=== PATIENT | male | born 1940 | race Caucasian/White ===

== ENCOUNTER 2018-08-10 09:11 | Emergency (ER) | payer OTHER ==
[2018-08-10 09:23] VITALS: BMI 24.3
--- NOTE | 2018-08-10 10:01 | PDOC ---
History of Present Illness - General Chief Complaint: Pain Stated Complaint: LLQ PAIN Time Seen by Provider: 08/10/18 09:13 History Source: Patient Exam Limitations: No Limitations - History of Present Illness Travel History: No Initial Comments: 08/10/18 09:59 78y F hx of htn, sleep apnea presents presents with pain of lower abdominal pain for the last 3 days, patient states that the pain is sharp and cramping located primarily in the left lower quadrant and is nonradiating. The patient notes that the pain was much worse yesterday and today has alleviated somewhat but it has not gone away so the patient was concerned so presented for evaluation. The patient states notes that he did have an episode of joint aches (elbow/shoulders), and diaphoresis this morning associated with the pain. There was no associated fever, chills, nausea, vomiting, diarrhea, dysuria, melena, chest pain, dyspnea on exertion, numbness/tingling/weakness, worsening symptoms with exertion. Patient did go to urgent care this morning and then was referred to the hospital for further evaluation. Patient denies having any similar episodes of pain in the past denies smoking, drug use, etoh abuse Past History - Past Medical History Allergies/Adverse Reactions: Allergies Allergy/AdvReac Type Severity Reaction Status Date / Time Penicillins Allergy Mild ITCHING,JACQUELYN Verified 08/10/18 09:12 H Home Medications: Ambulatory Orders propRANOLol HCL [Inderal LA -] 80 mg PO HS 11/16/12 Astaxanthin 4 mg PO DAILY 03/15/13 Multivitamin [Multivitamins] 1 each PO TID 04/30/13 Levofloxacin [Levaquin] 750 mg PO DAILY #10 tablet 08/10/18 Suvorexant [Belsomra] 10 mg PO HS 08/10/18 metroNIDAZOLE [Flagyl -] 500 mg PO BID #20 tablet 08/10/18 Anemia: No Asthma: No Cancer: No Cardiac Disorders: No CVA: No COPD: No CHF: No Dementia: Yes (MILD MEMORY LOSS) Diabetes: No GI Disorders: Yes (GERD/ HIATAL HERNIA/ GASTRITS) Disorders: Yes (UTI) HTN: Yes Hypercholesterolemia: No Liver Disease: No Seizures: No Thyroid Disease: No - Surgical History Abdominal Surgery: Yes (RIGHT INGUINAL HERNIA REPAIR-) Appendectomy: No Cardiac Surgery: No Cholecystectomy: No Lung Surgery: No Neurologic Surgery: No Orthopedic Surgery: (LEFT KNEE ARTHROSCOPIC RIGHT KNEE ARTHROSCOPIC ROTATOR CUFF X01 & 02) - Suicide/Smoking/Psychosocial Hx Smoking Status: Yes Smoking History: Never smoked Have you smoked in the past 12 months: No Number of Cigarettes Smoked Daily: 0 If you are a former smoker, when did you quit?: 1970 Hx Alcohol Use: No Drug/Substance Use Hx: No Substance Use Type: Alcohol Hx Substance Use Treatment: No Review of Systems - Review of Systems Able to Perform ROS?: Yes Comments:: 08/10/18 10:06 Constitutional - +diaphoresis no reported Fever, Chills, HEENT: no reported vision changes, sore throat Respiratory: no reported cough, sob, hemoptysis Cardiac: +light headedness, no reported chest pain, palpitations, leg swelling Abd/GI: +abd pain, no reported nausea, vomiting, blood per rectum, melena, diarrhea : no reported dysuria, frequency, discharge Musculskelatal - +joint aches no reported back pain, joint swelling skin - no reported bruising, erythema, rash neurological: no reported headache, numbness, focal weakness, tingling, ataxia, hematologic: no reported easy bruising, easy bleeding *Physical Exam - Vital Signs Last Vital Signs Temp Pulse Resp BP Pulse Ox 98 F 56 L 18 120/74 100 08/10/18 09:12 08/10/18 09:12 08/10/18 09:12 08/10/18 09:12 08/10/18 09:12 - Physical Exam Comments: 08/10/18 10:09 GENERAL: The patient is awake, alert, and fully oriented, Nontoxic - in no acute distress. HEAD: Normocephalic, atraumatic. EYES: extraocular movements intact, sclera anicteric, conjunctiva clear. ENT: Normal voice, Moist mucous membranes. NECK: Normal range of motion, supple LUNGS: Breath sounds equal, clear to auscultation bilaterally. No wheezes, no rhonchi, no rales. HEART: Regular rate and rhythm, normal S1 and S2 without murmur, rub or gallop. ABDOMEN: Soft, mild LLQ ttp. No guarding, no rebound. No CVA tenderness EXTREMITIES: Normal range of motion, no edema. NEUROLOGICAL: No facial assymetry, Normal speech, PSYCH: Normal mood, normal affect. SKIN: Warm, Dry, normal turgor, Heart Score/ECG Review - ECG Impressions Comment:: 08/10/18 10:12 Twelve-lead EKG was performed and reviewed by me. There is normal sinus rhythm with a rate of 54 The axis is normal. The intervals are normal. Incomplete right bundle branch block Impression: Sinus bradycardia ED Treatment Course - LABORATORY CBC & Chemistry Diagram: 08/10/18 09:44 08/10/18 09:44 Medical Decision Making - Medical Decision Making 08/10/18 10:09 Differential for the patient's symptoms includes possible diverticulitis, kidney stones. We'll consider possible ACS for the patient's diaphoreis/lightheadedness - but may be vagal response to the pain pt currently in not significnat pain, and declines pain medication will ck UA to r/o hematuria/uti/kindey stones will ck lab work including trops will reassess will likeyl need advanced imaging to r/o diverticulitis due to focal ttp 08/10/18 12:36 Patient's lab results were reviewed. The patient CT was also reviewed there are signs of acute diverticulitis without complications such as abscess. We'll give the patient Flagyl and Levaquin as the patient is ALLERGIC to penicillins. I believe the patient will be a good outpatient candidate I will have the patient follow up with his doctor in the following week. Return precautions are discussed. I discussed the physical exam findings, ancillary test results and final diagnoses with the patient. I answered all of the patient's questions. The patient was satisfied with the care received and felt comfortable with the discharge plan and treatment plan. The patient will call their primary care physician within 24 hours to arrange follow-up and will return to the Emergency Department with any new, persistent or worsening symptoms. *DC/Admit/Observation/Transfer Diagnosis at time of Disposition: Diverticula of colon - Discharge Dispostion Disposition: HOME Condition at time of disposition: Improved Decision to Admit order: No - Prescriptions Prescriptions: Levofloxacin [Levaquin] 750 mg PO DAILY #10 tablet metroNIDAZOLE [Flagyl -] 500 mg PO BID #20 tablet - Referrals Referrals: Bradly English MD [Non Staff, Medical] - - Patient Instructions Printed Discharge Instructions: DI for Diverticulitis Additional Instructions: Return to the emergency department immediately with ANY new, persistent or worsening symptoms including any worsening abdominal pain, fevers, vomiting or any other concerns. You MUST call and follow up with your doctor tomorrow for further evaluation of your symptoms. Results were discussed with you. Please make sure your doctor reviews the results of your emergency evaluation. If you had any xrays during your visit, it was read preliminarily by myself, a Radiologist will review it and if there are any additional findings we will call you. Print Language: POLISH - Post Discharge Activity
[2018-08-10 10:05] LABS: HEMOGLOBIN 12.2 GM/dl (11.7-16.9); MCH 34.4 pg (25.7-33.7); MCHC 34.9 g/dl (32.0-35.9); MEAN CELL VOLUME 98.7 fl (80-96); MEAN PLT VOLUME 8.5 fl (7.5-11.1); PLATELET COUNT 170 K/MM3 (134-434); RBC 3.54 M/mm3 (4.00-5.60); RDW 11.8 % (11.9-15.9); WHITE BLOOD COUNT 9.8 K/mm3 (4.0-10.8)
[2018-08-10] MEDS ORDERED: SODIUM CHLORIDE 1,000 ML IV ONE (10:28)
[2018-08-10 10:33] LABS: ALBUMIN 3.4 g/dl (3.4-5.0); ALK PHOS 67 U/L (45-117); ANION GAP 13 MMOL/L (8-16); BLOOD UREA NITROGEN 16 mg/dl (7-18); CALCIUM 9.4 mg/dl (8.5-10); CHLORIDE 101 mmol/L (98-107); CO2 26 mmol/L (21-32); CREATININE 1.1 mg/dl (0.55-1.3); GLUCOSE,RANDOM 109 mg/dl (74-106); POTASSIUM 4.4 mmol/L (3.5-5.1); SGOT/AST 15 U/L (15-37); SGPT/ALT 12 U/L (13-61); SODIUM 140 mmol/L (136-145); TOT PROT 6.1 g/dl (6.4-8.2)
[2018-08-10 10:46] LABS: EPITHELIAL CELLS 1+ /hpf; URINE MUCUS 1+
[2018-08-10 10:52] LABS: ANISOCYTOSIS SLIGHT
[2018-08-10 10:53] LABS: PLATELET ESTIMATE ADEQUATE
--- NOTE | 2018-08-10 13:42 | EKG ---
Test Reason : Blood Pressure : / mmHG Vent. Rate : 054 BPM Atrial Rate : 054 BPM P-R Int : 144 ms QRS Dur : 112 ms QT Int : 432 ms P-R-T Axes : 045 015 027 degrees QTc Int : 409 ms SINUS BRADYCARDIA INCOMPLETE RIGHT BUNDLE BRANCH BLOCK BORDERLINE ECG NO PREVIOUS ECGS AVAILABLE Confirmed by SANJAY MONACO, GLENN ([id number]) on 08/10/2018 1:42:33 PM Referred By: CHRIS GUAN Confirmed By:GLENN GRACE MD
[2018-08-10 13:53] VITALS: TEMP 98.3
[2018-08-10 14:54] VITALS: BP 144/89; PULSE 61
== END 2018-08-10 14:59 | disposition home or self-care (01) ==
LOC: FER 09:11
DX: K57.30 Diverticulosis of large intestine without perforation or abscess without bleeding (principal); I10 Essential (primary) hypertension; E78.00 Pure hypercholesterolemia, unspecified; K21.9 Gastro-esophageal reflux disease without esophagitis; F03.90 Unspecified dementia, unspecified severity, without behavioral disturbance, psychotic disturbance, mood disturbance, and anxiety; Z87.891 Personal history of nicotine dependence
CPT/HCPCS: 36415; 74177-TC; 80053; 81003; 81015; 82550; 84484; 85025; 93005; 99283-25; J7030

== ENCOUNTER 2020-03-19 12:34 | Emergency (ER) | payer OTHER, MEDICARE | END 2020-03-19 13:07 | disposition home or self-care (01) | LOC: JVIRT 12:34 | DX: U07.1 COVID-19 (principal) | CPT/HCPCS: C9803; G2012-GT; U0003 ==

== ENCOUNTER 2020-04-08 12:50 | Emergency (ER) | payer OTHER, MEDICARE | END 2020-04-08 13:05 | disposition home or self-care (01) | LOC: JVIRT 12:50 | DX: U07.1 COVID-19 (principal) | CPT/HCPCS: C9803; G2012-GT; Q3014-GT; U0003 ==

== ENCOUNTER 2020-06-18 07:35 | Day surgery (SDC) | payer OTHER, MEDICARE ==
[2020-06-16 11:56] VITALS: BMI 21.8
[2020-06-18] MEDS ORDERED: CYCLOPENTOLATE 2% OPHTH SOLN 2 ML BOTTLE ONE (07:45)
[2020-06-18] MEDS ORDERED: PHENYLEPHRINE 2.5% OPHTH SOLN 15 ML BOTTLE ONE (07:45)
[2020-06-18] MEDS ORDERED: CIPROFLOXACIN 0.3% EYE DROPS 5 ML BOTTLE ONE (07:45)
[2020-06-18] MEDS ORDERED: TROPICAMIDE 1% OPHTH SOLN 15 ML BOTTLE ONE (07:46)
[2020-06-18] MEDS ORDERED: TETRACAINE 0.5% OPHTH SOLN 2 ML BOTTLE ONE (08:46)
[2020-06-18] MEDS ORDERED: LIDOCAINE 1% P/F 10 MG/ML VIAL ONE (08:46)
[2020-06-18] MEDS ORDERED: CARBACHOL 0.01% INTRA-OCULAR 1.5 ML VIAL ONE (08:47)
[2020-06-18] MEDS ORDERED: BSS (NA/CA/MG/K) BALANCED SALT SOLUTION OPHTH SOLN 15 ML BOTTLE ONE (08:47)
[2020-06-18] MEDS ORDERED: NEO/POLYMYX B SULF/DEXAMETH OPHTHALMIC 5ML BOTTLE ONE (08:47)
[2020-06-18] MEDS ORDERED: EPINEPHrine/PF 1 MG/1 ML (1:1,000) AMPULE ONE (08:49)
[2020-06-18] MEDS ORDERED: MIDAZOLAM HCL 2 MG/2 ML SINGLE DOSE VIAL ONE (09:39)
[2020-06-18 10:43] VITALS: TEMP 97.8
[2020-06-18 11:01] VITALS: BP 145/84; PULSE 56
== END 2020-06-18 11:23 | disposition home or self-care (01) ==
LOC: FASU 07:35
PROVIDERS: ATTEND Ophthalmology
PROC: 08RK3JZ Replacement of Left Lens with Synthetic Substitute, Percutaneous Approach (ICD-10-PCS; principal; 2020-06-18 10:05)
DX: H26.8 Other specified cataract (principal)

== ENCOUNTER 2021-02-05 10:40 | Emergency (ER) | payer OTHER, MEDICARE ==
[2021-02-05 11:00] VITALS: BP 193/89; PULSE 63; TEMP 98.2; BMI 19.9
== END 2021-02-05 11:38 | disposition home or self-care (01) ==
LOC: FER 10:40
DX: I10 Essential (primary) hypertension (principal)
CPT/HCPCS: 99281-25

== ENCOUNTER 2021-02-26 02:04 | Observation (INO) | payer OTHER, MEDICARE ==
[2021-02-26] MEDS ORDERED: ACETAMINOPHEN 1000 MG/100 ML VIAL IVPB ONE ×2 (03:07→14:29)
[2021-02-26] MEDS ORDERED: SODIUM CHLORIDE 500 ML IV STA (03:07)
[2021-02-26 03:40] LABS: BASO % 0.6 % (0-2.0); EOS % 1.9 % (0-4.5); HEMATOCRIT 31.3 % (35.4-49); HEMOGLOBIN 10.8 GM/dL (11.7-16.9); LYMPH % 4.4 % (8-40); MCH 33.8 pg (25.7-33.7); MCHC 34.7 g/dl (32.0-35.9); MEAN CELL VOLUME 97.5 fl (80-96); MEAN PLT VOLUME 7.7 fl (7.5-11.1); MONO % 5.1 % (3.8-10.2); PLATELET COUNT 178 10^3/uL (134-434); RBC 3.21 M/mm3 (4.00-5.60); RDW 12.5 % (11.9-15.9); WHITE BLOOD COUNT 9.5 K/mm3 (4.0-10.0)
[2021-02-26 03:48] LABS: URINE APPEARANCE CLEAR; URINE BILIRUBIN NEGATIVE (NEGATIVE); URINE COLOR YELLOW; URINE GLUCOSE (UA) NEGATIVE (NEGATIVE); URINE KETONE NEGATIVE (NEGATIVE); URINE LEUK ESTERASE NEGATIVE (NEGATIVE); URINE NITRITE NEGATIVE (NEGATIVE); URINE PROTEIN NEGATIVE (NEGATIVE); URINE UROBILINOGEN 0.2 mg/dL (0.2-1.0)
[2021-02-26 04:02] LABS: CHLORIDE 104 mmol/L (98-107); SODIUM 138 mmol/L (136-145)
[2021-02-26 04:03] LABS: CALCIUM 8.7 mg/dL (8.5-10.1)
[2021-02-26 04:04] LABS: ALBUMIN 3.3 g/dl (3.4-5.0); ANION GAP 7 MMOL/L (8-16); BLOOD UREA NITROGEN 26.6 mg/dL (7-18); CO2 27 mmol/L (21-32); GLUCOSE,RANDOM 111 mg/dL (74-106)
[2021-02-26 04:07] LABS: CREATININE 1.3 mg/dL (0.55-1.3); SGOT/AST 30 U/L (15-37); SGPT/ALT 21 U/L (13-61)
[2021-02-26 04:09] LABS: BILIRUBIN,TOTAL 0.7 mg/dL (0.2-1); TOT PROT 6.3 g/dl (6.4-8.2)
[2021-02-26 04:10] LABS: ALK PHOS 80 U/L (45-117)
[2021-02-26] MEDS ORDERED: TETRAHYDROZOLINE HCL EYE DROPS OU PRN (09:53)
[2021-02-26 10:43] VITALS: BMI 19.9
[2021-02-26] MEDS ORDERED: SODIUM CHLORIDE 1,000 ML IV SCH (14:45)
[2021-02-26] MEDS: DULoxetine HCL 30 MG CAPSULE.DR PO SCH (14:49)
[2021-02-26] MEDS: ENOXAPARIN NA (PORCINE) 40 MG/0.4 ML DISP.SYRIN SQ SCH (14:54)
[2021-02-26] MEDS ORDERED: ACETAMINOPHEN 1000 MG/100 ML VIAL IVPB PRN (21:00)
[2021-02-26] MEDS ORDERED: MEMANTINE HCL 5 MG TABLET (UD) PO SCH (22:00)
[2021-02-26] MEDS ORDERED: DONEPEZIL HCL 10 MG TABLET (FP) PO SCH (22:00)
[2021-02-26] MEDS ORDERED: MELATONIN 5 MG TABLETS PO SCH (22:00)
[2021-02-27] MEDS: DULoxetine HCL 30 MG CAPSULE.DR PO SCH (09:37)
[2021-02-27] MEDS: ENOXAPARIN NA (PORCINE) 40 MG/0.4 ML DISP.SYRIN SQ SCH (09:37)
[2021-02-27 13:53] VITALS: BP 124/55; PULSE 58; TEMP 98.1
== END 2021-02-27 14:46 | disposition home or self-care (01) ==
LOC: FER 02:04 → FM/S 08:41 → UNDOADMOB 09:09 → FM/S 09:09 → INTOOBSV 09:09 → FM/S 22:35
PROVIDERS: ADMIT Internal Medicine; ATTEND Nurse Practitioner Acute Care
PROC: 3E033NZ Introduction of Analgesics, Hypnotics, Sedatives into Peripheral Vein, Percutaneous Approach (ICD-10-PCS; principal; 2021-02-26)
PROC: 3E023GC Introduction of Other Therapeutic Substance into Muscle, Percutaneous Approach (ICD-10-PCS; 2021-02-26)
PROC: 3E0337Z Introduction of Electrolytic and Water Balance Substance into Peripheral Vein, Percutaneous Approach (ICD-10-PCS; 2021-02-26)
DX: R11.2 Nausea with vomiting, unspecified (principal); R53.1 Weakness; I10 Essential (primary) hypertension; K21.9 Gastro-esophageal reflux disease without esophagitis; E78.5 Hyperlipidemia, unspecified; Z86.16 Personal history of COVID-19; F03.90 Unspecified dementia, unspecified severity, without behavioral disturbance, psychotic disturbance, mood disturbance, and anxiety; Z87.891 Personal history of nicotine dependence; Z88.0 Allergy status to penicillin
CPT/HCPCS: 36415; 71045-TC-FY; 80053; 81003; 82550; 83605; 84484; 85025; 87040; 87086; 93005; 96361; 96372; 96374; 96376; 97116-GP; 97162-GP; 99285-25; C9803; G0378; J0131; U0003; U0005

== ENCOUNTER 2021-11-07 09:40 | Emergency (ER) | payer OTHER, MEDICARE ==
[2021-11-07 09:55] VITALS: RESP 18; BMI 21.1
[2021-11-07 10:36] LABS: HEMATOCRIT 32.5 % (35.4-49); HEMOGLOBIN 11.6 G/dL (11.7-16.9); INR 1.12 (0.83-1.09); MCH 34.7 pg (25.7-33.7); MCHC 35.6 g/dl (32.0-35.9); MEAN CELL VOLUME 97.6 fl (80-96); MEAN PLT VOLUME 8.3 fl (7.5-11.1); PLATELET COUNT 195.6 10^3/uL (134-434); PROTHROMBIN TIME (PATIENT) 12.9 SEC (9.7-13.0); RBC 3.33 10^6/uL (4.00-5.60); WHITE BLOOD COUNT 7.1 10^3/uL (4.0-10.8)
[2021-11-07 10:43] LABS: ALBUMIN 3.3 g/dl (3.4-5.0); BILIRUBIN,TOTAL 0.7 mg/dl (0.2-1); CALCIUM 9.1 mg/dl (8.5-10); CREATININE 1.1 mg/dl (0.55-1.3); TOT PROT 5.7 g/dl (6.4-8.2)
[2021-11-07] MEDS ORDERED: SODIUM CHLORIDE 1,000 ML IV STA (10:53)
[2021-11-07 11:09] LABS: PLATELET ESTIMATE ADEQUATE
[2021-11-07 13:35] VITALS: BP 155/68; PULSE 79; TEMP 98
== END 2021-11-07 13:30 | disposition home or self-care (01) ==
LOC: FER 09:40
PROC: 3E0337Z Introduction of Electrolytic and Water Balance Substance into Peripheral Vein, Percutaneous Approach (ICD-10-PCS; principal; 2021-11-07)
DX: E86.0 Dehydration (principal)
CPT/HCPCS: 0241U-QW; 36415; 71045-TC-FY; 80053; 81003; 81015; 84484; 85027; 85610; 93005; 99285-25

== ENCOUNTER 2021-11-20 09:14 | Emergency (ER) | payer OTHER, MEDICARE ==
[2021-11-20 09:24] VITALS: BP 206/92; PULSE 59; RESP 18; TEMP 98.9; BMI 21.1
[2021-11-20 11:07] LABS: HEMATOCRIT 38.7 % (35.4-49); HEMOGLOBIN 13.3 G/dL (11.7-16.9); MCH 33.5 pg (25.7-33.7); MCHC 34.3 g/dl (32.0-35.9); MEAN CELL VOLUME 97.8 fl (80-96); MEAN PLT VOLUME 8.2 fl (7.5-11.1); PLATELET COUNT 212.8 10^3/uL (134-434); RBC 3.96 10^6/uL (4.00-5.60); RDW 13.5 % (11.9-15.9)
[2021-11-20 11:48] LABS: ALBUMIN 3.4 g/dl (3.4-5.0); BILIRUBIN,TOTAL 0.8 mg/dl (0.2-1); CALCIUM 9.3 mg/dl (8.5-10)
== END 2021-11-20 12:46 | disposition home or self-care (01) ==
LOC: FER 09:14
DX: S00.212A Abrasion of left eyelid and periocular area, initial encounter (principal); S09.90XA Unspecified injury of head, initial encounter; W01.0XXA Fall on same level from slipping, tripping and stumbling without subsequent striking against object, initial encounter
CPT/HCPCS: 36415; 70450-TC; 70486-TC; 71045-TC-FY; 72125-TC; 72170-TC-FY; 80053; 81003; 84484; 85027; 93005; 99285-25

== ENCOUNTER 2021-11-28 09:47 | Inpatient (IN) | payer OTHER, MEDICARE ==
[2021-11-28 11:47] LABS: HEMATOCRIT 35.2 % (35.4-49); HEMOGLOBIN 12.6 G/dL (11.7-16.9); MCH 34.8 pg (25.7-33.7); MCHC 35.9 g/dl (32.0-35.9); MEAN CELL VOLUME 97.1 fl (80-96); MEAN PLT VOLUME 8.5 fl (7.5-11.1); PLATELET COUNT 180.6 10^3/uL (134-434); RBC 3.63 10^6/uL (4.00-5.60); RDW 12.7 % (11.9-15.9)
[2021-11-28 12:23] LABS: AMORP PHOS 2+ /hpf (NONE SEEN)
[2021-11-28 12:25] LABS: PLATELET ESTIMATE ADEQUATE
[2021-11-28 12:28] LABS: ALBUMIN 3.4 g/dl (3.4-5.0); BILIRUBIN,TOTAL 0.8 mg/dl (0.2-1); CALCIUM 9.3 mg/dl (8.5-10); CREATININE 1.2 mg/dl (0.55-1.3)
[2021-11-28] MEDS ORDERED: LOSARTAN POTASSIUM 50 MG TABLET PO ONE (12:38)
[2021-11-28] MEDS ORDERED: DONEPEZIL HCL 10 MG TABLET (FP) PO ONE (12:38)
[2021-11-28] MEDS ORDERED: METOPROLOL TARTRATE 50 MG TABLET (FP) PO ONE (12:38)
[2021-11-28] MEDS ORDERED: amLODIPine BESYLATE 5 MG TABLET (FP) PO ONE (12:40)
[2021-11-28] MEDS ORDERED: amLODIPine BESYLATE 5 MG TABLET (FP) ONE (12:50)
[2021-11-28] MEDS ORDERED: METOPROLOL TARTRATE 50 MG TABLET (FP) ONE (12:50)
[2021-11-28] MEDS ORDERED: LOSARTAN POTASSIUM 50 MG TABLET ONE (12:51)
[2021-11-28] MEDS ORDERED: LIDOCAINE 5% TOPICAL PATCH TP STA (13:42)
[2021-11-28] MEDS ORDERED: SODIUM CHLORIDE 1,000 ML IV SCH (13:45)
[2021-11-28] MEDS ORDERED: TAMSULOSIN HCL 0.4 MG CAP ONE (15:14)
[2021-11-28] MEDS ORDERED: LIDOCAINE 5% TOPICAL PATCH ONE (15:14)
[2021-11-28] MEDS: TAMSULOSIN HCL 0.4 MG CAP PO SCH (15:35)
[2021-11-28 16:21] LABS: HEMATOCRIT 34.2 % (35.4-49); HEMOGLOBIN 12.6 G/dL (11.7-16.9); MCH 35.4 pg (25.7-33.7); MCHC 36.7 g/dl (32.0-35.9); MEAN CELL VOLUME 96.4 fl (80-96); MEAN PLT VOLUME 9.5 fl (7.5-11.1); PLATELET COUNT 281.9 10^3/uL (134-434); RBC 3.55 10^6/uL (4.00-5.60); RDW 13.5 % (11.9-15.9); WHITE BLOOD COUNT 7.7 10^3/uL (4.0-10.8)
[2021-11-28 16:36] VITALS: BMI 20.1
[2021-11-28] MEDS: ENOXAPARIN NA (PORCINE) 30 MG/0.3 ML DISP.SYRIN SQ SCH (18:38)
[2021-11-28] MEDS: MEMANTINE HCL 10 MG TABLET (FP) PO SCH (21:17)
[2021-11-28] MEDS: FAMOTIDINE 20 MG TABLET PO SCH (21:17)
[2021-11-28] MEDS: metoPROLOL SUCCINATE 25 MG TAB.SR.24H (FP) PO SCH (21:17)
[2021-11-28] MEDS: LIDOCAINE PATCH REMOVAL MC SCH (21:17)
[2021-11-28] MEDS ORDERED: DULoxetine HCL 20 MG CAPSULE.DR PO SCH (22:00)
[2021-11-28] MEDS: DULoxetine HCL 30 MG CAPSULE.DR PO SCH (23:05)
[2021-11-29] MEDS: DONEPEZIL HCL 10 MG TABLET (FP) PO SCH (06:55)
[2021-11-29] MEDS ORDERED: PATIENT'S OWN MEDICATION (NON-FORMULARY) (Meloxicam [Meloxicam] 15 MG Tablet) PO SCH (07:00)
[2021-11-29] MEDS ORDERED: PATIENT'S OWN MEDICATION (NON-FORMULARY) (Losartan Potassium [Losartan Potassium] 100 MG T PO SCH (07:00)
[2021-11-29] MEDS ORDERED: amLODIPine BESYLATE 5 MG TABLET (FP) PO SCH (10:00)
[2021-11-29] MEDS: amLODIPine BESYLATE 10 MG TABLET (FP) PO SCH (10:06)
[2021-11-29] MEDS: ENOXAPARIN NA (PORCINE) 30 MG/0.3 ML DISP.SYRIN SQ SCH (10:06)
[2021-11-29] MEDS: LOSARTAN POTASSIUM 50 MG TABLET PO SCH (10:06)
[2021-11-29] MEDS: TAMSULOSIN HCL 0.4 MG CAP PO SCH (10:42)
[2021-11-29] MEDS: metoPROLOL SUCCINATE 25 MG TAB.SR.24H (FP) PO SCH (21:12)
[2021-11-29] MEDS: MEMANTINE HCL 10 MG TABLET (FP) PO SCH (21:12)
[2021-11-29] MEDS: DULoxetine HCL 30 MG CAPSULE.DR PO SCH (21:13)
[2021-11-29] MEDS: FAMOTIDINE 20 MG TABLET PO SCH (21:14)
[2021-11-30] MEDS: DONEPEZIL HCL 10 MG TABLET (FP) PO SCH (06:14)
[2021-11-30] MEDS: LIDOCAINE PATCH REMOVAL MC SCH (06:18)
[2021-11-30 08:32] LABS: ALBUMIN 3.3 g/dl (3.4-5.0); BILIRUBIN,TOTAL 0.7 mg/dl (0.2-1); CALCIUM 9.1 mg/dl (8.5-10); CREATININE 1.1 mg/dl (0.55-1.3); TOT PROT 5.8 g/dl (6.4-8.2)
[2021-11-30] MEDS: LOSARTAN POTASSIUM 50 MG TABLET PO SCH (09:40)
[2021-11-30] MEDS: amLODIPine BESYLATE 10 MG TABLET (FP) PO SCH (09:41)
[2021-11-30] MEDS: ENOXAPARIN NA (PORCINE) 30 MG/0.3 ML DISP.SYRIN SQ SCH (09:41)
[2021-11-30] MEDS: TAMSULOSIN HCL 0.4 MG CAP PO SCH (09:41)
[2021-11-30 10:57] LABS: BASO % 0.5 % (0-2.0); EOS % 4.5 % (0-4.5); HEMATOCRIT 33.5 % (35.4-49); HEMOGLOBIN 11.4 GM/dL (11.7-16.9); MCH 32.9 pg (25.7-33.7); MEAN CELL VOLUME 96.7 fl (80-96); PLATELET COUNT 195 10^3/uL (134-434); RBC 3.46 M/mm3 (4.00-5.60); RDW 12.6 % (11.9-15.9)
[2021-11-30] MEDS ORDERED: SODIUM CHLORIDE 1,000 ML IV SCH (11:45)
[2021-11-30] MEDS: MEMANTINE HCL 10 MG TABLET (FP) PO SCH (21:47)
[2021-11-30] MEDS: FAMOTIDINE 20 MG TABLET PO SCH (21:47)
[2021-11-30] MEDS: DULoxetine HCL 30 MG CAPSULE.DR PO SCH (21:47)
[2021-11-30] MEDS: metoPROLOL SUCCINATE 25 MG TAB.SR.24H (FP) PO SCH (21:47)
[2021-12-01] MEDS: DONEPEZIL HCL 10 MG TABLET (FP) PO SCH (06:31)
[2021-12-01] MEDS: LIDOCAINE PATCH REMOVAL MC SCH ×2 (06:32→22:59)
[2021-12-01 08:16] LABS: ALBUMIN 3.3 g/dl (3.4-5.0); BILIRUBIN,TOTAL 0.7 mg/dl (0.2-1); CALCIUM 9.1 mg/dl (8.5-10); CREATININE 1.2 mg/dl (0.55-1.3)
[2021-12-01] MEDS: TAMSULOSIN HCL 0.4 MG CAP PO SCH (09:28)
[2021-12-01] MEDS: amLODIPine BESYLATE 10 MG TABLET (FP) PO SCH (09:28)
[2021-12-01] MEDS: LOSARTAN POTASSIUM 50 MG TABLET PO SCH (09:28)
[2021-12-01] MEDS: ENOXAPARIN NA (PORCINE) 30 MG/0.3 ML DISP.SYRIN SQ SCH (09:29)
[2021-12-01 11:12] LABS: HEMATOCRIT 34.9 % (35.4-49); HEMOGLOBIN 11.8 GM/dL (11.7-16.9); MCH 32.9 pg (25.7-33.7); MCHC 33.9 g/dl (32.0-35.9); MEAN CELL VOLUME 97.2 fl (80-96); MEAN PLT VOLUME 9.2 fl (7.5-11.1); PLATELET COUNT 195 10^3/uL (134-434); RBC 3.59 M/mm3 (4.00-5.60); RDW 12.6 % (11.9-15.9); WHITE BLOOD COUNT 5.6 K/mm3 (4.0-10.0)
[2021-12-01] MEDS: MEMANTINE HCL 10 MG TABLET (FP) PO SCH (21:49)
[2021-12-01] MEDS: metoPROLOL SUCCINATE 25 MG TAB.SR.24H (FP) PO SCH (21:49)
[2021-12-01] MEDS: FAMOTIDINE 20 MG TABLET PO SCH (21:49)
[2021-12-01] MEDS: DULoxetine HCL 30 MG CAPSULE.DR PO SCH (21:49)
[2021-12-02] MEDS: DONEPEZIL HCL 10 MG TABLET (FP) PO SCH (06:12)
[2021-12-02] MEDS: amLODIPine BESYLATE 10 MG TABLET (FP) PO SCH (09:39)
[2021-12-02] MEDS: ENOXAPARIN NA (PORCINE) 30 MG/0.3 ML DISP.SYRIN SQ SCH (09:39)
[2021-12-02] MEDS: TAMSULOSIN HCL 0.4 MG CAP PO SCH (09:39)
[2021-12-02] MEDS: LOSARTAN POTASSIUM 50 MG TABLET PO SCH (09:39)
[2021-12-02 14:06] VITALS: BP 153/57; PULSE 67; RESP 16; TEMP 98.5
== END 2021-12-02 14:35 | disposition home or self-care (01) | DRG 92 ==
LOC: FER 09:47 → FM/S 12:52 → OBSVTOIN 11-29 17:00
DX: R29.6 Repeated falls (principal); E87.1 Hypo-osmolality and hyponatremia; E78.5 Hyperlipidemia, unspecified; F03.90 Unspecified dementia, unspecified severity, without behavioral disturbance, psychotic disturbance, mood disturbance, and anxiety; N40.0 Benign prostatic hyperplasia without lower urinary tract symptoms; R26.81 Unsteadiness on feet; R07.81 Pleurodynia; E86.0 Dehydration; M25.562 Pain in left knee; M25.561 Pain in right knee; F32.A Depression, unspecified; M17.0 Bilateral primary osteoarthritis of knee; I12.9 Hypertensive chronic kidney disease with stage 1 through stage 4 chronic kidney disease, or unspecified chronic kidney disease; N18.9 Chronic kidney disease, unspecified; I08.1 Rheumatic disorders of both mitral and tricuspid valves; S20.312A Abrasion of left front wall of thorax, initial encounter; W01.0XXA Fall on same level from slipping, tripping and stumbling without subsequent striking against object, initial encounter; Y92.098 Other place in other non-institutional residence as the place of occurrence of the external cause
CPT/HCPCS: 0241U-QW; 36415; 71101-TC-LT-FY; 73560-TC-LT-FY; 73560-TC-RT-FY; 80053; 81003; 81015; 82306; 82607; 85025; 85027; 93005; 93306-TC; 93880-TC; 97116-GP; 97162-GP; 99285-25; G0378

== ENCOUNTER 2021-12-22 10:35 | Day surgery (SDC) | payer OTHER, MEDICARE ==
[2021-12-18 12:06] VITALS: BMI 20.7
[2021-12-22 11:33] VITALS: BP 165/90; PULSE 54; RESP 18; TEMP 97.4
[2021-12-22] MEDS ORDERED: CEFAZOLIN 2 GM in DEXTROSE 5%-WATER - 50 ML IVPB ONE (13:00)
[2021-12-22] MEDS ORDERED: TRANEXAMIC ACID 1000 MG/10 ML VIAL IVPUSH ONE (13:00)
[2021-12-22] MEDS ORDERED: CELECOXIB 200 MG CAPSULE PO ONE (13:00)
== END 2021-12-22 12:00 | disposition short-term general hospital (02) ==
LOC: FASUSAT 10:35
PROVIDERS: ATTEND Orthopaedic Surgery
PROC: 0SRC0J9 Replacement of Right Knee Joint with Synthetic Substitute, Cemented, Open Approach (ICD-10-PCS; principal; 2021-12-22)
DX: Z53.09 Procedure and treatment not carried out because of other contraindication (principal); M17.11 Unilateral primary osteoarthritis, right knee
CPT/HCPCS: 82962

== ENCOUNTER 2021-12-22 11:28 | Emergency (ER) | payer OTHER, MEDICARE ==
[2021-12-22] MEDS ORDERED: ONDANSETRON 4 MG/2 ML VIAL IVPUSH ONE (12:14)
[2021-12-22] MEDS ORDERED: LACTATED RINGERS SOLUTION 1,000 ML/1,000 ML INFUS.BAG IV STA (12:14)
[2021-12-22 12:18] VITALS: BP 116/75; PULSE 53; RESP 18; TEMP 98.1; BMI 20.7
[2021-12-22] MEDS ORDERED: ONDANSETRON 4 MG/2 ML VIAL ONE (12:52)
[2021-12-22 13:12] LABS: HEMATOCRIT 34.6 % (35.4-49); HEMOGLOBIN 12.4 G/dL (11.7-16.9); MCH 35.2 pg (25.7-33.7); MCHC 35.7 g/dl (32.0-35.9); MEAN CELL VOLUME 98.6 fl (80-96); PLATELET COUNT 214.2 10^3/uL (134-434); RBC 3.51 10^6/uL (4.00-5.60); RDW 13.4 % (11.9-15.9)
[2021-12-22 13:18] LABS: ALBUMIN 3.7 g/dl (3.4-5.0); BILIRUBIN,TOTAL 0.6 mg/dl (0.2-1); CALCIUM 9.5 mg/dl (8.5-10); CREATININE 1.1 mg/dl (0.55-1.3); TOT PROT 6.5 g/dl (6.4-8.2)
[2021-12-22 14:15] LABS: PLATELET ESTIMATE ADEQUATE
== END 2021-12-22 18:19 | disposition home or self-care (01) ==
LOC: FER 11:28
PROC: 3E033GC Introduction of Other Therapeutic Substance into Peripheral Vein, Percutaneous Approach (ICD-10-PCS; principal; 2021-12-22)
PROC: 3E0337Z Introduction of Electrolytic and Water Balance Substance into Peripheral Vein, Percutaneous Approach (ICD-10-PCS; 2021-12-22)
DX: R11.0 Nausea (principal)
CPT/HCPCS: 0241U-QW; 36415; 71045-TC-FY; 80053; 81003; 82962; 83690; 84484; 85025; 87086; 93005; 99285-25

== ENCOUNTER 2021-12-29 05:53 | Day surgery (SDC) | payer OTHER, MEDICARE ==
[2021-12-24 17:02] VITALS: BMI 20.7
[2021-12-29] MEDS ORDERED: CELECOXIB 200 MG CAPSULE PO ONE ×2 (06:50→09:00)
[2021-12-29] MEDS ORDERED: ceFAZolin SODIUM 1 GM VIAL ONE ×2 (07:14→08:24)
[2021-12-29] MEDS ORDERED: VANCOMYCIN 1,000 MG VIAL (RESTRICTED TO ID ONLY) ONE (07:14)
[2021-12-29] MEDS ORDERED: PROPOFOL 100 ML ONE (07:22)
[2021-12-29] MEDS ORDERED: MIDAZOLAM HCL 2 MG/2 ML SINGLE DOSE VIAL ONE (07:22)
[2021-12-29] MEDS ORDERED: BUPIVACAINE HCL/PF 0.5% (5MG/ML) 10 ML VIAL ONE (07:31)
[2021-12-29] MEDS ORDERED: BUPIVACAINE LIPOSOME/PF (EXPAREL) 266 MG/20 ML VIAL ONE (07:31)
[2021-12-29] MEDS ORDERED: CEFAZOLIN 2 GM in DEXTROSE 5%-WATER - 50 ML IVPB ONE (08:00)
[2021-12-29] MEDS ORDERED: MAG HYDROX/AL HYDROX/SIMETH 30 ML UNIT-DOSE CUP PO PRN (08:08)
[2021-12-29] MEDS ORDERED: ONDANSETRON 4 MG/2 ML VIAL IVPUSH PRN ×2 (08:08→10:17)
[2021-12-29] MEDS ORDERED: LACTATED RINGERS SOLUTION 1,000 ML IV SCH ×2 (08:15→10:30)
[2021-12-29] MEDS ORDERED: TRANEXAMIC ACID 1000 MG/10 ML VIAL ONE (08:24)
[2021-12-29] MEDS ORDERED: TRANEXAMIC ACID 1000 MG/10 ML VIAL IVPUSH ONE (09:00)
[2021-12-29] MEDS ORDERED: oxyCODONE HCL 5 MG TABLET PO PRN ×2 (10:17)
[2021-12-29] MEDS ORDERED: PROMETHAZINE HCL 25 MG/1 ML VIAL IVPUSH PRN (10:17)
[2021-12-29] MEDS ORDERED: KETOROLAC TROMETHAMINE 30 MG/1 ML VIAL ONE (10:48)
[2021-12-29] MEDS: ACETAMINOPHEN 1000 MG/100 ML BAG IVPB ONE ×2 (10:52→13:11)
[2021-12-29] MEDS: KETOROLAC TROMETHAMINE 30 MG/1 ML VIAL IVPUSH SCH ×3 (10:52→16:46)
[2021-12-29] MEDS: MEMANTINE HCL 10 MG TABLET (FP) PO SCH ×2 (13:10→21:14)
[2021-12-29] MEDS: LOSARTAN POTASSIUM 50 MG TABLET PO SCH (13:10)
[2021-12-29] MEDS: amLODIPine BESYLATE 5 MG TABLET (FP) PO SCH (13:10)
[2021-12-29] MEDS: SENNOSIDES/DOCUSATE COMBO (SENNA PLUS) TABLET (UD) PO SCH ×2 (13:10→21:14)
[2021-12-29] MEDS: MULTIVITAMINS (DAILY MVI) TABLET (FP) PO SCH (13:11)
[2021-12-29] MEDS: CEFAZOLIN SODIUM 2 GM in DEXTROSE 5%-WATER 100 ML IVPB SCH ×2 (16:46→23:57)
[2021-12-29] MEDS: DONEPEZIL HCL 10 MG TABLET (FP) PO SCH (21:14)
[2021-12-29] MEDS: DULoxetine HCL 30 MG CAPSULE.DR PO SCH (21:14)
[2021-12-29] MEDS: FAMOTIDINE 20 MG TABLET PO SCH (21:14)
[2021-12-29] MEDS: metoPROLOL SUCCINATE 25 MG TAB.SR.24H (FP) PO SCH (21:14)
[2021-12-30] MEDS: ACETAMINOPHEN 1000 MG/100 ML BAG IVPB PRN ×2 (06:57→12:52)
[2021-12-30] MEDS: TAMSULOSIN HCL 0.4 MG CAP PO SCH (08:24)
[2021-12-30] MEDS: ASPIRIN 325 MG TABLET PO SCH (08:24)
[2021-12-30 08:31] LABS: HEMATOCRIT 30.9 % (35.4-49); HEMOGLOBIN 10.6 G/dL (11.7-16.9); MCH 33.5 pg (25.7-33.7); MCHC 34.4 g/dl (32.0-35.9); MEAN CELL VOLUME 97.6 fl (80-96); MEAN PLT VOLUME 8.2 fl (7.5-11.1); PLATELET COUNT 174.2 10^3/uL (134-434); RBC 3.17 10^6/uL (4.00-5.60); RDW 13.1 % (11.9-15.9)
[2021-12-30] MEDS: amLODIPine BESYLATE 5 MG TABLET (FP) PO SCH (09:22)
[2021-12-30] MEDS: MULTIVITAMINS (DAILY MVI) TABLET (FP) PO SCH (09:22)
[2021-12-30] MEDS: SENNOSIDES/DOCUSATE COMBO (SENNA PLUS) TABLET (UD) PO SCH ×2 (09:22→21:25)
[2021-12-30] MEDS: MEMANTINE HCL 10 MG TABLET (FP) PO SCH ×2 (09:22→21:26)
[2021-12-30] MEDS: LOSARTAN POTASSIUM 50 MG TABLET PO SCH (09:22)
[2021-12-30] MEDS: DONEPEZIL HCL 10 MG TABLET (FP) PO SCH (21:25)
[2021-12-30] MEDS: DULoxetine HCL 30 MG CAPSULE.DR PO SCH (21:26)
[2021-12-30] MEDS: metoPROLOL SUCCINATE 25 MG TAB.SR.24H (FP) PO SCH (21:26)
[2021-12-30] MEDS: FAMOTIDINE 20 MG TABLET PO SCH (21:26)
[2021-12-31 06:36] VITALS: PULSE 70
[2021-12-31 08:23] LABS: HEMATOCRIT 28.6 % (35.4-49); MCH 34.6 pg (25.7-33.7); MEAN CELL VOLUME 98.7 fl (80-96); MEAN PLT VOLUME 8.3 fl (7.5-11.1); PLATELET COUNT 159.2 10^3/uL (134-434); RDW 12.9 % (11.9-15.9); WHITE BLOOD COUNT 10.7 10^3/uL (4.0-10.8)
[2021-12-31 09:35] VITALS: BP 132/51; RESP 18; TEMP 98.6
[2021-12-31] MEDS: SENNOSIDES/DOCUSATE COMBO (SENNA PLUS) TABLET (UD) PO SCH (09:44)
[2021-12-31] MEDS: ASPIRIN 325 MG TABLET PO SCH (09:45)
[2021-12-31] MEDS: TAMSULOSIN HCL 0.4 MG CAP PO SCH (09:45)
[2021-12-31] MEDS: amLODIPine BESYLATE 5 MG TABLET (FP) PO SCH (09:46)
[2021-12-31] MEDS: LOSARTAN POTASSIUM 50 MG TABLET PO SCH (09:46)
[2021-12-31] MEDS: MEMANTINE HCL 10 MG TABLET (FP) PO SCH (09:47)
[2021-12-31] MEDS: MULTIVITAMINS (DAILY MVI) TABLET (FP) PO SCH (09:47)
== END 2021-12-31 13:26 | disposition home health service (06) ==
LOC: FASUSAT 05:53 → FM/S 11:36 → FASUSAT 12-31 13:26
PROVIDERS: ATTEND Orthopaedic Surgery
PROC: 8E0YXBZ Computer Assisted Procedure of Lower Extremity (ICD-10-PCS; 2021-12-29)
PROC: 8E0Y0CZ Robotic Assisted Procedure of Lower Extremity, Open Approach (ICD-10-PCS; 2021-12-29)
PROC: 0SRC0J9 Replacement of Right Knee Joint with Synthetic Substitute, Cemented, Open Approach (ICD-10-PCS; principal; 2021-12-29 08:33)
DX: M17.11 Unilateral primary osteoarthritis, right knee (principal)
CPT/HCPCS: 20985; 27447; C1776; S2900; 36415; 73560-TC-RT-FY; 85027; 94760; 97010-GP; 97116-GP; 97162-GP; C1713; C1889

== ENCOUNTER 2023-02-09 18:35 | Inpatient (IN) | payer OTHER, MEDICARE ==
[2023-02-09] MEDS ORDERED: ONDANSETRON 4 MG/2 ML VIAL IVPUSH ONE (19:20)
[2023-02-09] MEDS ORDERED: SODIUM CHLORIDE 0.9% 500 ML INFUS.BAG IV ONE (19:20)
[2023-02-09] MEDS ORDERED: ONDANSETRON 4 MG/2 ML VIAL ONE (19:22)
[2023-02-09] MEDS ORDERED: ACETAMINOPHEN INJECTION 100 ML IVPB ONE (19:22)
[2023-02-09] MEDS ORDERED: ACETAMINOPHEN 1000 MG/100 ML BAG IVPB ONE (19:27)
[2023-02-09 20:14] LABS: INR 1.1 (0.83-1.09); PROTHROMBIN TIME (PATIENT) 12.7 SEC (9.7-13.0)
[2023-02-09 20:20] LABS: HEMATOCRIT 36.4 % (35.4-49); HEMOGLOBIN 11.8 G/dL (11.7-16.9); MCH 33.7 pg (25.7-33.7); MCHC 32.5 g/dl (32.0-35.9); MEAN CELL VOLUME 103.6 fl (80-96); MEAN PLT VOLUME 8.1 fl (7.5-11.1); PLATELET COUNT 180.5 10^3/uL (134-434); RBC 3.51 10^6/uL (4.00-5.60); RDW 13.1 % (11.9-15.9); WHITE BLOOD COUNT 8.8 10^3/uL (4.0-10.8)
[2023-02-09 20:26] LABS: BILIRUBIN,TOTAL 0.6 mg/dl (0.2-1); CALCIUM 9.4 mg/dl (8.5-10.1); CREATININE 1.3 mg/dl (0.6-1.3); MAGNESIUM 1.9 mg/dL (1.8-2.4); POTASSIUM 4.5 mmol/L (3.5-5.1); TOT PROT 6.3 g/dl (6.4-8.2)
[2023-02-09 21:25] LABS: VENOUS BASE EXCESS 0.2 mmol/L (-2-2); VENOUS O2 SATURATION 53.5 % (70-80); VENOUS PCO2 43.9 mmHg (38-52); VENOUS PH 7.381 (7.310-7.410)
[2023-02-09] MEDS ORDERED: DOCUSATE SODIUM 100 MG CAPSULE (FP) PO PRN (22:41)
[2023-02-09] MEDS ORDERED: SODIUM CHLORIDE 1,000 ML IV SCH (22:45)
[2023-02-10 00:58] LABS: EPI CELLS 5 /uL (0-25.1); HYALINE CASTS 0 /uL (0-3.1); URINE APPEARANCE CLEAR; URINE BACTERIA 1 /uL (0-1359); URINE BILIRUBIN NEGATIVE (NEGATIVE); URINE COLOR YELLOW; URINE GLUCOSE (UA) NEGATIVE (NEGATIVE); URINE KETONE NEGATIVE (NEGATIVE); URINE LEUK ESTERASE NEGATIVE (NEGATIVE); URINE NITRITE NEGATIVE (NEGATIVE); URINE PROTEIN 1+ (NEGATIVE); URINE RBC 64 /uL (0-23.9); URINE UROBILINOGEN 0.2 mg/dL (0.2-1.0); URINE WBC 5 /uL (0-25.8)
[2023-02-10] MEDS ORDERED: ONDANSETRON 4 MG/2 ML VIAL IVPUSH PRN (02:00)
[2023-02-10] MEDS: ACETAMINOPHEN 1000 MG/100 ML BAG IVPB PRN ×2 (03:00→10:47)
[2023-02-10] MEDS ORDERED: REMDESIVIR 200 MG in SODIUM CHLORIDE 250 ML IVPB ONE (05:00)
[2023-02-10 07:29] LABS: HEMOGLOBIN 10.4 G/dL (11.7-16.9); MCH 34.5 pg (25.7-33.7); MCHC 33.5 g/dl (32.0-35.9); MEAN CELL VOLUME 102.9 fl (80-96); MEAN PLT VOLUME 7.8 fl (7.5-11.1); PLATELET COUNT 142.7 10^3/uL (134-434); RBC 3.01 10^6/uL (4.00-5.60); WHITE BLOOD COUNT 7.4 10^3/uL (4.0-10.8)
[2023-02-10 07:49] LABS: CALCIUM 8.5 mg/dl (8.5-10.1); CREATININE 1.3 mg/dl (0.6-1.3); MAGNESIUM 1.8 mg/dL (1.8-2.4); PHOSPHOROUS 3.4 (2.5-4.9); POTASSIUM 3.8 mmol/L (3.5-5.1)
[2023-02-10] MEDS: ENOXAPARIN NA (PORCINE) 40 MG/0.4 ML DISP.SYRIN SQ SCH (10:10)
[2023-02-11] MEDS: ACETAMINOPHEN 1000 MG/100 ML BAG IVPB PRN (00:15)
[2023-02-11 07:21] LABS: HEMATOCRIT 31.3 % (35.4-49); HEMOGLOBIN 10.5 G/dL (11.7-16.9); MCH 34.6 pg (25.7-33.7); MCHC 33.5 g/dl (32.0-35.9); MEAN CELL VOLUME 103.2 fl (80-96); MEAN PLT VOLUME 8.2 fl (7.5-11.1); PLATELET COUNT 151.7 10^3/uL (134-434); RBC 3.03 10^6/uL (4.00-5.60); WHITE BLOOD COUNT 7.4 10^3/uL (4.0-10.8)
[2023-02-11 07:46] LABS: ALBUMIN 3.2 g/dl (3.4-5.0); BILIRUBIN,TOTAL 0.5 mg/dl (0.2-1); CALCIUM 8.5 mg/dl (8.5-10.1); CREATININE 1.1 mg/dl (0.6-1.3); MAGNESIUM 1.6 mg/dL (1.8-2.4); PHOSPHOROUS 2.8 (2.5-4.9); POTASSIUM 3.7 mmol/L (3.5-5.1); TOT PROT 4.4 g/dl (6.4-8.2)
[2023-02-11] MEDS: ENOXAPARIN NA (PORCINE) 40 MG/0.4 ML DISP.SYRIN SQ SCH (10:01)
[2023-02-11] MEDS: VANCOMYCIN/WATER FOR INJ (PEG) 1 GM/200 ML BAG IVPB SCH ×2 (10:02→22:24)
[2023-02-11] MEDS: REMDESIVIR 100 MG in SODIUM CHLORIDE 250 ML IVPB SCH (11:33)
[2023-02-11] MEDS ORDERED: MAGNESIUM SULF 50% (8.12 MEQ/2 ML-1 GM VIAL) IVPB ONE (12:28)
[2023-02-11] MEDS ORDERED: MAGNESIUM 1GM/D5W - 1 GM/100 ML IVPB IVPB ONE (13:30)
[2023-02-11 15:05] VITALS: BMI 23.7
[2023-02-12] MEDS: ACETAMINOPHEN 325 MG TABLET (FP) PO PRN ×3 (06:36→21:21)
[2023-02-12 09:45] LABS: HEMATOCRIT 33.2 % (35.4-49); HEMOGLOBIN 11.4 G/dL (11.7-16.9); MCH 35.1 pg (25.7-33.7); MCHC 34.4 g/dl (32.0-35.9); MEAN CELL VOLUME 102.3 fl (80-96); MEAN PLT VOLUME 8.5 fl (7.5-11.1); PLATELET COUNT 165.6 10^3/uL (134-434); RBC 3.25 10^6/uL (4.00-5.60); RDW 12.6 % (11.9-15.9); WHITE BLOOD COUNT 9.5 10^3/uL (4.0-10.8)
[2023-02-12] MEDS: LIDOCAINE 5% TOPICAL PATCH TP SCH (09:54)
[2023-02-12] MEDS: MULTIVITAMINS (DAILY MVI) TABLET (FP) PO SCH (09:54)
[2023-02-12] MEDS: ENOXAPARIN NA (PORCINE) 40 MG/0.4 ML DISP.SYRIN SQ SCH (09:55)
[2023-02-12 10:05] LABS: ALBUMIN 3.3 g/dl (3.4-5.0); BILIRUBIN,TOTAL 0.6 mg/dl (0.2-1); CALCIUM 8.5 mg/dl (8.5-10.1); MAGNESIUM 1.7 mg/dL (1.8-2.4); POTASSIUM 3.8 mmol/L (3.5-5.1); TOT PROT 5.2 g/dl (6.4-8.2)
[2023-02-12] MEDS ORDERED: MAGNESIUM OXIDE 400 MG TABLET (FP) PO ONE (10:30)
[2023-02-12] MEDS: REMDESIVIR 100 MG in SODIUM CHLORIDE 250 ML IVPB SCH (11:50)
[2023-02-12] MEDS: LIDOCAINE PATCH REMOVAL MC SCH (22:00)
[2023-02-12] MEDS: MELATONIN 5 MG TABLETS PO PRN (23:29)
[2023-02-13] MEDS: ACETAMINOPHEN 325 MG TABLET (FP) PO PRN ×2 (03:41→21:15)
[2023-02-13] MEDS ORDERED: DULoxetine HCL 30 MG CAPSULE.DR PO ONE (07:12)
[2023-02-13] MEDS: ENOXAPARIN NA (PORCINE) 40 MG/0.4 ML DISP.SYRIN SQ SCH (09:02)
[2023-02-13] MEDS: LIDOCAINE 5% TOPICAL PATCH TP SCH (09:02)
[2023-02-13] MEDS: MULTIVITAMINS (DAILY MVI) TABLET (FP) PO SCH (09:03)
[2023-02-13] MEDS: MEMANTINE HCL 10 MG TABLET (FP) PO SCH ×2 (09:04→21:14)
[2023-02-13] MEDS: FOLIC ACID 1 MG TABLET (FP) PO SCH (09:04)
[2023-02-13] MEDS: FERROUS SO4 325 MG TABLET (FP) PO SCH (09:05)
[2023-02-13] MEDS: CYANOCOBALAMIN 1,000 MCG TABLET (FP) PO SCH (09:05)
[2023-02-13] MEDS: LOSARTAN POTASSIUM 50 MG TABLET PO SCH (09:05)
[2023-02-13] MEDS ORDERED: METOCLOPRAMIDE HCL 10 MG TABLET (FP) PO ONE ×2 (09:12→11:45)
[2023-02-13] MEDS: REMDESIVIR 100 MG in SODIUM CHLORIDE 250 ML IVPB SCH (12:31)
[2023-02-13 14:47] VITALS: RESP 18
[2023-02-13] MEDS: MELATONIN 5 MG TABLETS PO PRN (21:14)
[2023-02-13] MEDS: LIDOCAINE PATCH REMOVAL MC SCH (21:48)
[2023-02-13] MEDS ORDERED: TAMSULOSIN HCL 0.4 MG CAP PO SCH (22:00)
[2023-02-13] MEDS ORDERED: DONEPEZIL HCL 10 MG TABLET (FP) PO SCH (22:00)
[2023-02-13] MEDS ORDERED: FAMOTIDINE 20 MG TABLET PO SCH (22:00)
[2023-02-13] MEDS ORDERED: DULoxetine HCL 20 MG CAPSULE.DR PO SCH (22:00)
[2023-02-14 08:00] LABS: HEMATOCRIT 32.6 % (35.4-49); HEMOGLOBIN 10.8 G/dL (11.7-16.9); MCH 33.6 pg (25.7-33.7); MEAN PLT VOLUME 8.8 fl (7.5-11.1); PLATELET COUNT 172.7 10^3/uL (134-434); RDW 13.1 % (11.9-15.9)
[2023-02-14 08:56] LABS: ALBUMIN 3.3 g/dl (3.4-5.0); BILIRUBIN,TOTAL 0.7 mg/dl (0.2-1); CALCIUM 8.6 mg/dl (8.5-10.1); POTASSIUM 3.6 mmol/L (3.5-5.1); TOT PROT 5.3 g/dl (6.4-8.2)
[2023-02-14] MEDS ORDERED: METOCLOPRAMIDE HCL INJECTION 10 MG/2 ML VIAL IVPUSH ONE (10:14)
[2023-02-14] MEDS: ACETAMINOPHEN 325 MG TABLET (FP) PO PRN (10:39)
[2023-02-14] MEDS: MULTIVITAMINS (DAILY MVI) TABLET (FP) PO SCH (10:39)
[2023-02-14] MEDS: ENOXAPARIN NA (PORCINE) 40 MG/0.4 ML DISP.SYRIN SQ SCH (10:40)
[2023-02-14] MEDS: FERROUS SO4 325 MG TABLET (FP) PO SCH (10:40)
[2023-02-14] MEDS: MEMANTINE HCL 10 MG TABLET (FP) PO SCH (10:40)
[2023-02-14] MEDS: FOLIC ACID 1 MG TABLET (FP) PO SCH (10:40)
[2023-02-14] MEDS: LOSARTAN POTASSIUM 50 MG TABLET PO SCH (10:40)
[2023-02-14] MEDS: CYANOCOBALAMIN 1,000 MCG TABLET (FP) PO SCH (10:40)
[2023-02-14] MEDS: REMDESIVIR 100 MG in SODIUM CHLORIDE 250 ML IVPB SCH (10:41)
[2023-02-14] MEDS: LIDOCAINE 5% TOPICAL PATCH TP SCH (10:41)
[2023-02-14 14:50] VITALS: BP 124/47; PULSE 68; TEMP 99.2
[2023-02-14] MEDS ORDERED: DULoxetine HCL 30 MG CAPSULE.DR PO SCH (22:00)
== END 2023-02-14 15:44 | DRG 179 ==
LOC: FER 18:35 → FM/S 20:59
PROVIDERS: ADMIT Internal Medicine; ATTEND Internal Medicine
PROC: XW033E5 Introduction of Remdesivir Anti-infective into Peripheral Vein, Percutaneous Approach, New Technology Group 5 (ICD-10-PCS; principal; 2023-02-09)
DX: U07.1 COVID-19 (principal); I10 Essential (primary) hypertension; E78.5 Hyperlipidemia, unspecified; N40.0 Benign prostatic hyperplasia without lower urinary tract symptoms; K21.9 Gastro-esophageal reflux disease without esophagitis
CPT/HCPCS: 0241U-QW; 36415; 71045-TC-FY; 80048; 80053; 81003; 82550; 82553; 82728; 82803; 83605; 83615; 83735; 84100; 84484; 85027; 85610; 85730; 87040; 87086; 87635; 93005; 97116-GP; 97161-GP; 99285-25; J0248

== ENCOUNTER 2023-08-31 14:29 | Inpatient (IN) | payer OTHER, MEDICARE ==
[2023-08-31 16:18] LABS: HEMATOCRIT 36.6 % (35.4-49); HEMOGLOBIN 12.1 G/dL (11.7-16.9); MCH 33.6 pg (25.7-33.7); MCHC 33.1 g/dl (32.0-35.9); MEAN CELL VOLUME 101.3 fl (80-96); MEAN PLT VOLUME 8.2 fl (7.5-11.1); PLATELET COUNT 179.1 10^3/uL (134-434); RBC 3.61 10^6/uL (4.00-5.60); RDW 12.9 % (11.9-15.9); WHITE BLOOD COUNT 7.6 10^3/uL (4.0-10.8)
[2023-08-31 16:26] LABS: INR 0.98 (0.83-1.09); PROTHROMBIN TIME (PATIENT) 11.2 SEC (9.7-13.0)
[2023-08-31 16:28] LABS: ACTIVATED PTT 33.3 SECONDS (25.2-36.5)
[2023-08-31 16:36] LABS: PLATELET ESTIMATE ADEQUATE
[2023-08-31 16:37] LABS: ALBUMIN 3.9 g/dl (3.4-5.0); BILIRUBIN,TOTAL 0.6 mg/dl (0.2-1); CALCIUM 9.5 mg/dl (8.5-10.1); CREATININE 1.2 mg/dl (0.6-1.3); MAGNESIUM 1.8 mg/dL (1.8-2.4); PHOSPHOROUS 3.4 (2.5-4.9); POTASSIUM 4.5 mmol/L (3.5-5.1); TOT PROT 5.9 g/dl (6.4-8.2)
[2023-08-31] MEDS: MEMANTINE HCL 10 MG TABLET (FP) PO SCH (23:27)
[2023-08-31] MEDS: DULoxetine HCL 30 MG CAPSULE.DR PO SCH (23:27)
[2023-08-31] MEDS: DONEPEZIL HCL 10 MG TABLET (FP) PO SCH (23:27)
[2023-08-31 23:39] VITALS: BMI 21.1
[2023-09-01] MEDS: LOSARTAN POTASSIUM 50 MG TABLET PO SCH (07:13)
[2023-09-01 08:36] LABS: ANION GAP 10 mmol/L (4-13); CALCIUM 9.7 mg/dl (8.5-10.1); CHLORIDE 105 mmol/L (98-107); CO2 27 mmol/L (21-32); CREATININE 1.1 mg/dl (0.6-1.3); GLUCOSE,RANDOM 89 mg/dl (74-106); POTASSIUM 3.8 mmol/L (3.5-5.1); SODIUM 142 mmol/L (136-145)
[2023-09-01 09:47] LABS: BASO % 0.6 % (0-2.0); EOS % 5.3 % (0-4.5); HEMATOCRIT 34.6 % (35.4-49); HEMOGLOBIN 11.9 GM/dL (11.7-16.9); LYMPH % 19.5 % (8-40); MCH 33.9 pg (25.7-33.7); MCHC 34.5 g/dl (32.0-35.9); MEAN CELL VOLUME 98.1 fl (80-96); MEAN PLT VOLUME 8.4 fl (7.5-11.1); MONO % 9.1 % (3.8-10.2); NEUT % 65.5 % (42.8-82.8); PLATELET COUNT 194 10^3/uL (134-434); RBC 3.53 M/mm3 (4.00-5.60); RDW 12.7 % (11.9-15.9); WHITE BLOOD COUNT 6.3 K/mm3 (4.0-10.0)
[2023-09-01] MEDS: FERROUS SO4 325 MG TABLET (FP) PO SCH (11:02)
[2023-09-01] MEDS: ASCORBIC ACID 500 MG TABLET (FP) PO SCH (21:07)
[2023-09-01] MEDS: FAMOTIDINE 20 MG TABLET PO SCH (21:07)
[2023-09-01] MEDS: TAMSULOSIN HCL 0.4 MG CAP PO SCH (21:08)
[2023-09-02 02:10] VITALS: RESP 18
[2023-09-02] MEDS: AMINO ACIDS/PROTEIN HYDROLYS 30 ML LIQUID.PKT PO SCH (07:46)
[2023-09-02 09:15] LABS: ALBUMIN 3.8 g/dl (3.4-5.0); ALK PHOS 64 U/L (45-117); ANION GAP 10 mmol/L (4-13); BILIRUBIN,TOTAL 0.7 mg/dl (0.2-1); CALCIUM 9.7 mg/dl (8.5-10.1); CHLORIDE 104 mmol/L (98-107); CO2 28 mmol/L (21-32); CREATININE 1.2 mg/dl (0.6-1.3); GLUCOSE,RANDOM 97 mg/dl (74-106); SGOT/AST 14 U/L (15-37); SGPT/ALT 8 U/L (7-52); SODIUM 142 mmol/L (136-145); TOT PROT 5.6 g/dl (6.4-8.2)
[2023-09-02] MEDS: MULTIVITAMINS (DAILY MVI) TABLET (FP) PO SCH (10:06)
[2023-09-02 13:27] LABS: BASO % 0.5 % (0-2.0); HEMATOCRIT 34.1 % (35.4-49); HEMOGLOBIN 11.9 GM/dL (11.7-16.9); LYMPH % 19.3 % (8-40); MCH 34.6 pg (25.7-33.7); MCHC 34.8 g/dl (32.0-35.9); MEAN CELL VOLUME 99.4 fl (80-96); MEAN PLT VOLUME 8.8 fl (7.5-11.1); MONO % 9.5 % (3.8-10.2); NEUT % 66.7 % (42.8-82.8); PLATELET COUNT 179 10^3/uL (134-434); RBC 3.43 M/mm3 (4.00-5.60); RDW 13.3 % (11.9-15.9); WHITE BLOOD COUNT 6.3 K/mm3 (4.0-10.0)
[2023-09-03 10:30] VITALS: BP 138/69; PULSE 62; TEMP 98
== END 2023-09-03 12:15 | DRG 392 ==
LOC: FER 14:29 → FM/S 22:51
PROVIDERS: ADMIT Internal Medicine
DX: A08.39 Other viral enteritis (principal); E44.0 Moderate protein-calorie malnutrition; E78.5 Hyperlipidemia, unspecified; N40.0 Benign prostatic hyperplasia without lower urinary tract symptoms; K21.9 Gastro-esophageal reflux disease without esophagitis; F03.90 Unspecified dementia, unspecified severity, without behavioral disturbance, psychotic disturbance, mood disturbance, and anxiety; K44.9 Diaphragmatic hernia without obstruction or gangrene; R26.89 Other abnormalities of gait and mobility; M48.00 Spinal stenosis, site unspecified; F41.8 Other specified anxiety disorders; I12.9 Hypertensive chronic kidney disease with stage 1 through stage 4 chronic kidney disease, or unspecified chronic kidney disease; N18.9 Chronic kidney disease, unspecified; M17.0 Bilateral primary osteoarthritis of knee; R29.6 Repeated falls; Z68.21 Body mass index [BMI] 21.0-21.9, adult; B33.8 Other specified viral diseases; R07.81 Pleurodynia
CPT/HCPCS: 0241U-QW; 36415; 70450-TC; 71045-TC-FY; 80048; 80053; 81003; 81015; 83735; 84100; 84484; 85025; 85027; 85610; 85730; 87086; 93005; 97116-GP; 97162-GP; 99285-25